=== PATIENT | female | born 2000 | race American Indian/Alaskan Native ===

== ENCOUNTER 2021-03-03 19:43 | Outpatient (CLI) | payer MEDICAID ==
[2021-03-03] MEDS ORDERED: LACTATED RINGERS 1,000 ML IV ONE (21:02)
[2021-03-03 21:22] LABS: Bilirubin,Urine NEG (Negative); Blood,Urine MOD (Negative); Color,Urine Yellow (Yellow); Protein,Urine <15 mg/dL mg/dL (Negative); Urobilinogen,Urine < 2.0 mg/dL (<2.0)
[2021-03-03 22:33] VITALS: BP 115/69
== END 2021-03-03 23:15 | disposition home or self-care (01) ==
LOC: TRG 19:43 → APU 19:44 → TRG 23:15
PROVIDERS: ATTEND Obstetrics & Gynecology
DX: O46.8X2 Other antepartum hemorrhage, second trimester (principal); Z3A.24 24 weeks gestation of pregnancy
CPT/HCPCS: 59025; 81001

== ENCOUNTER 2021-05-23 20:43 | Outpatient (CLI) | payer MEDICAID ==
[2021-05-23] MEDS ORDERED: LACTATED RINGERS 1,000 ML IV ONE (21:50)
[2021-05-23 23:30] VITALS: BP 128/85
== END 2021-05-23 23:43 | disposition home or self-care (01) ==
LOC: TRG 20:43 → APU 20:44 → TRG 23:43
PROVIDERS: ATTEND Obstetrics & Gynecology
DX: O42.913 Preterm premature rupture of membranes, unspecified as to length of time between rupture and onset of labor, third trimester (principal); O26.893 Other specified pregnancy related conditions, third trimester; R19.7 Diarrhea, unspecified; M54.9 Dorsalgia, unspecified; O47.1 False labor at or after 37 completed weeks of gestation; Z3A.36 36 weeks gestation of pregnancy
CPT/HCPCS: 36415; 59025; 84112; 96360; J7120

== ENCOUNTER 2021-06-06 19:31 | Inpatient (IN) | payer MEDICAID ==
[2021-06-06] MEDS ORDERED: ACETAMINOPHEN 325 MG TAB PO PRN (20:13)
[2021-06-06] MEDS ORDERED: fentaNYL 100 MCG/2 ML INJ IV PRN (20:13)
[2021-06-06] MEDS ORDERED: ONDANSETRON 4 MG/2 ML INJ IV PRN (20:13)
[2021-06-06] MEDS ORDERED: ePHEDrine SULFATE 50 MG/1 ML INJ IV PRN (20:13)
[2021-06-06] MEDS ORDERED: BUTORPHANOL 2 MG/1 ML INJ IV PRN (20:13)
[2021-06-06] MEDS ORDERED: NALOXONE 0.4 MG/1 ML INJ IV PRN (20:13)
[2021-06-06] MEDS ORDERED: LIDOCAINE (2%) 20 MG/1 ML VIAL 20 ML MDV INFILTRATI ONE (20:13)
[2021-06-06] MEDS ORDERED: LOPERAMIDE 2 MG CAP PO PRN (20:13)
[2021-06-06] MEDS ORDERED: OXYTOCIN 10 UNIT/1 ML INJ IM PRN (20:13)
[2021-06-06] MEDS ORDERED: MINERAL OIL 30 ML ORAL LIQD PO PRN (20:13)
[2021-06-06] MEDS ORDERED: PROMETHAZINE 25 MG TAB PO PRN (20:13)
[2021-06-06] MEDS ORDERED: miSOPROStol 200 MCG TAB PR PRN (20:13)
[2021-06-06] MEDS ORDERED: CARBOPROST TROMETHAMINE 250 MCG/1 ML INJ IM PRN (20:13)
[2021-06-06] MEDS ORDERED: TERBUTALINE 1 MG/1 ML INJ SUB-Q PRN (20:13)
[2021-06-06] MEDS ORDERED: METHYLERGONOVINE MALEATE 0.2 MG/ML VIAL IM PRN (20:13)
--- NOTE | 2021-06-06 20:26 | History and Physical Report ---
History of Present Illness Date of examination: 06/06/21 Date of admission: 06/06/21 Chief complaint: I'm having a lot of contractions and my water broke at 1 pm today and it was yellow. History of present illness: Pt presented to labor and delivery with c/o SROM for yellow fluid at 1pm and contractions that become more intense and frequent. EDC Confirmation: 06/14/2021 Gestational Age: 38.6 weeks on admission Past History : 1 Term Births: 0 Premature Births: 0 Living Children: 0 Para: 0 Mult. Births: 0 Prev : 0 Prev. attempt? 0 Aborta: 0 Elect. Ab: 0 Spont. 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 [employer] Risk Factors: Smoked Tobacco Use: Never smoker Smokeless Tobacco Use: Never Passive Smoke Exposure: no HIV High Risk Behavior: no Exercise: no Seatbelt Use: 50 % No Dietary Counseling Reason: pn yes Alcohol Use: no Drug Use: no Past Medical History Surgery (Non-cook italian style food): Negative Past Surgical History Abnormal PAP: negative KISHA Exposure: negative Infertility: negative Uterine Anomaly: negative Uterine Surgery (not C/S): positive Other Gynecologic Problems: negative Social Hx: Single denies 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 of genital herpes: no Partner hx. of genital herpes: no Genetic History Congenital Heart Defect: Mom: no Dad: no Alisha Disease: Mom: no Dad: no Thalassemia Mom: no Dad: no Neural Tube Defect Mom: no Dad: no Down's Syndrome Mom: no Dad: no Oz-Sachs Mom: no Dad: no Sickle Cell Disease/Trait Mom: no Dad: no Hemophilia Mom: no Dad: no Muscular Dystrophy Mom: no Dad: no Cystic Fibrosis Mom: no Dad: no [place] Chorea Mom: no Dad: no Mental Retardation Mom: no Dad: no Fragile X Mom: no Dad: no Other Genetic/Chromosomal Disorder Mom: no Dad: no Child w/other defect Mom: no Dad: no Enviromental Exposures Xray Exposure: no Medication, drug, or alcohol use since LMP: no Chemical/Other Exposure: no Exposure to Cat Liter: no Hx of Parvovirus (Fifth Disease): no Occupational Exposure to Children: other 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 Current Allergies (reviewed today): No known allergies Past History Past Medical History: no pertinent history Past Surgical History: no surgical history Family/Genetic History: diabetes, hypertension, cancer Social history: no significant social history - Obstetrical History Expected Date of Delivery: 06/14/21 Actual Gestation: 39 Week(s) 0 Day(s) : 1 Para: 0 Hx # Term Pregnancies: 0 Number of Pregnancies: 0 Spontaneous Abortions: 0 Induced : 0 Number of Living Children: 0 Medications and Allergies Allergies Allergy/AdvReac Type Severity Reaction Status Date / Time No Known Allergies Allergy Unverified 03/03/21 21:01 Active Meds: Active Medications Acetaminophen (Acetaminophen 325 Mg Tab) 650 mg PO Q4H PRN PRN Reason: Pain, Mild (1-3) Butorphanol Tartrate (Butorphanol 2 Mg/1 Ml Inj) 1 mg IV Q2H PRN PRN Reason: Pain, Moderate(4-6) LABOR PAIN Carboprost Tromethamine (Carboprost Tromethamine 250 Mcg/1 Ml Inj) 250 mcg IM ONCE PRN PRN Reason: Uterine Bleeding Ephedrine Sulfate (Ephedrine Sulfate 50 Mg/1 Ml Inj) 10 mg IV Q2M PRN PRN Reason: Hypotension Fentanyl (Fentanyl 100 Mcg/2 Ml Inj) 100 mcg IV Q2H PRN PRN Reason: Pain,Severe (7-10) LABOR PAIN Oxytocin/Sodium Chloride (Pitocin/Ns 30 Unit/500ml) 30 units in 500 mls @ 2 mls/hr IV TITR ASTER; Protocol Lactated Ringer's (Lactated Ringers) 1,000 mls @ 125 mls/hr IV DIRECT ASTER Oxytocin/Sodium Chloride (Pitocin/Ns 30 Unit/500ml) 30 units in 500 mls @ 40 mls/hr IV TITR ASTER; Protocol Lidocaine (Lidocaine (2%) 20 Mg/1 Ml Vial 20 Ml Mdv) 20 ml INFILTRATI ONCE ONE Stop: 06/06/21 20:14 Loperamide HCl (Loperamide 2 Mg Cap) 2 mg PO ONCE PRN PRN Reason: give with Hemabate Methylergonovine Maleate (Methylergonovine Maleate 0.2 Mg/Ml Vial) 0.2 mg IM ONCE PRN PRN Reason: Uterine Bleeding Mineral Oil (Mineral Oil 30 Ml Oral Liqd) 30 ml PO QHS PRN PRN Reason: Constipation Misoprostol (Misoprostol 200 Mcg Tab) 800 mcg MO ONCE PRN PRN Reason: Uterine Bleeding Naloxone HCl (Naloxone 0.4 Mg/1 Ml Inj) 0.1 mg IV Q2MIN PRN PRN Reason: Res Rate </= 8 or 02 SAT < 92% Ondansetron HCl (Ondansetron 4 Mg/2 Ml Inj) 4 mg IV Q8H PRN PRN Reason: Nausea And Vomiting Oxytocin (Oxytocin 10 Unit/1 Ml Inj) 10 unit IM ONCE PRN PRN Reason: Uterine Bleeding Promethazine HCl (Promethazine 25 Mg Tab) 25 mg PO Q6H PRN PRN Reason: Nausea And Vomiting Terbutaline Sulfate (Terbutaline 1 Mg/1 Ml Inj) 0.25 mg SUB-Q ONCE PRN PRN Reason: Hyperstimulation/Hypertonicity Review of Systems All systems: negative - Vital Signs Vital signs: Vital Signs Pulse Pulse Ox 91 H 99 06/06/21 20:03 06/06/21 20:03 Temp Pulse Resp BP Pulse Ox 89 140/86 97 06/06/21 20:18 06/06/21 20:04 06/06/21 20:18 Large amount of light yellow fluid noted on peripad and exam glove. - Physical Exam Breasts: Positive: deferred Cardiovascular: Regular rate Lungs: Positive: Normal air movement Abdomen: Positive: normal appearance, soft Genitourinary (Female): Positive: normal external genitalia, normal perenium Vulva: both: normal Uterus: Positive: normal size Extremities: Positive: normal - Obstetrical FHR: category 1 Uterine Contraction Monitor Mode: External Cervical Dilatation: 4 Cervical Effacement Percentage: 50 station: -2 Uterine Contraction Pattern: Regular Uterine Tone Measurement Phase: Resting Uterine Contraction Intensity: Moderate Results Result Diagrams: 06/06/21 Unknown All other labs normal. GBS NEGATIVE HBsAg Screen Negative Negative *1 RPR Non Reactive Non Reactive *2 Rubella Antibodies, IgG 5.18 index Immune >0.99 *3 Non-immune <0.90 Equivocal 0.90 - 0.99 Immune >0.99 ABO Grouping O *4 Rh Factor Positive *5 Please note: Prior records for this patient's ABO / Rh type are not available for additional verification. Antibody Screen Negative Negative *6 WBC 9.0 x10E3/uL 3.4-10.8 *7 RBC 4.59 x10E6/uL 3.77-5.28 *8 Hemoglobin 12.3 g/dL 11.1-15.9 *9 Hematocrit 38.2 % 34.0-46.6 *10 MCV 83 fL 79-97 *11 MCH 26.8 pg 26.6-33.0 *12 MCHC 32.2 g/dL 31.5-35.7 *13 RDW 13.5 % 11.7-15.4 *14 Platelets 321 x10E3/uL 150-450 *15 Neutrophils 66 % Not Estab. *16 Lymphs 27 % Not Estab. *17 Monocytes 7 % Not Estab. *18 Eos 0 % Not Estab. *19 Basos 0 % Not Estab. *20 ! Immature Cells <No Reported Value> *21 Neutrophils (Absolute) 5.9 x10E3/uL 1.4-7.0 *22 Lymphs (Absolute) 2.4 x10E3/uL 0.7-3.1 *23 Monocytes(Absolute) 0.7 x10E3/uL 0.1-0.9 *24 Eos (Absolute) 0.0 x10E3/uL 0.0-0.4 *25 Baso (Absolute) 0.0 x10E3/uL 0.0-0.2 *26 ! Immature Granulocytes 0 % Not Estab. *27 ! Immature Grans (Abs) 0.0 x10E3/uL 0.0-0.1 *28 ! NRBC <No Reported Value> *29 Hematology Comments: <No Reported Value> *30 Tests: (2) AFP Tetra ([id number]) ! Results Report *31 ! Test Results: *Screen Negative* *32 ! Gest. Age on Collection Date 20.0 WEEKS *33 ! Gestat. Age Based On Ultrasound *34 20.0 on 01/28/2021 ! M[age] CORINNE [age] *35 ! Race Black *36 ! Weight 180 lbs *37 ! Insulin Dep Diabetes No *38 ! Multiple Gestation No *39 ! AFP Value 61.5 ng/mL *40 ! AFP MoM 1.08 *41 ! hCG Value 7299 mIU/mL *42 ! hCG MoM 0.34 *43 ! uE3 Value 2.00 ng/mL *44 ! uE3 MoM 0.94 *45 ! GIGI Value 100.82 pg/mL *46 ! GIGI MoM 0.62 *47 ! [place] 1 [place] [address] *48 ! DSR (Second Trimester) 1 [place] [address] *49 ! DSR (By Age) 1 IN 1148 *50 ! T18 Risk Not increased *51 ! T18 (By Age) 1:4473 *52 ! Interpretation NL42 *53 Interpretation: Screen Negative This result is screen negative for OSB, Down Syndrome and Trisomy 18. The AFP MoM and patient specific risks calculated are based on the gestational age and the clinical information provided. This test can identify up to 80% of open neural tube defects. Closed neural tube defects and some open defects may not be detected by this test. The combination of maternal age, AFP, hCG, uE3, and GIGI identifies 75-80% of Down Syndrome. The combination of maternal age, AFP, hCG and uE3 identifies 60% of Trisomy 18 pregnancies. The [place] recommends amniocentesis be offered to women age 35 and older. Recalculations are not recommended when gestational dating by LMP and ultrasound are within 10 days. ! Comments: [facility] *54 Shala Hurley, Ph.D., [facility] Director References: Available Upon Request. Multiples Of Median Cutoffs Abbreviation Definitions For AFP Elevations IDD- Insulin Dep Diabetes Brock 2.5 Black 2.8 OSBR- Open Spina Bifida IDD 2.0 Twins 4.5 Risk DSR Cutoff 1:270 DSR- Down Syndrome Risk T18 Cutoff 1:100 T18- Trisomy 18 Down Syndrome and Trisomy 18 screening are considered Investigational For further inquiries contact [facility] at [phone]. Tests: (3) Parvovirus B19, Human, IgG/IgM ([id number]) ! Parvovirus B19, IgG 0.3 index 0.0-0.8 *55 Negative <0.9 Equivocal 0.9 - 1.1 Positive >1.1 ! Parvovirus B19, IgM 0.1 index 0.0-0.8 *56 Negative <0.9 Equivocal 0.9 - 1.1 Positive >1.1 Tests: (4) HB Solu + Rflx Fra ([id number]) Hemoglobin (Hgb) Solubility Negative Negative *57 Tests: (5) HIV Ag/Ab with Reflex ([id number]) HIV Screen 4th Generation wRfx Non Reactive Non Reactive *58 Tests: (6) HCV Antibody reflex to KIMBER ([id number]) HCV Ab 0.1 s/co ratio 0.0-0.9 *59 Tests: (7) Interpretation: ([id number]) ! Interpretation: SPRCS *60 Negative Not infected with HCV, unless recent infection is suspected or other evidence exists to indicate HCV infection. Tests: (8) Urine Culture, Routine ([id number]) Urine Culture, Routine Final report *61 Tests: (9) Result ([id number]) ! Result 1 No growth *62 Assessment and Plan A: 21 y.o. @ 38.6 wks on admission, SROM @ 1pm for light mec, labor. - Patient Problems (1) 38 to 41 weeks gestation of Current Visit: Yes Status: Acute Plan to address problem: Admit to labor and delivery. Initiate IV. Draw admission labs. Pain medication and epidural ordered if and when needed. Anticipate . (2) Thin meconium stained amniotic fluid Current Visit: Yes Status: Acute Plan to address problem: ASHLEY team at delivery.
[2021-06-06] MEDS ORDERED: OXYTOCIN DRIP 30 UNITS/500 ML BAG IV SCH ×2 (21:00)
--- NOTE | 2021-06-06 21:33 | Ultrasound Report ---
US OB LIMITED INDICATION: presentation. COMPARISON: None available. FINDINGS: A single live intrauterine is seen in cephalic presentation with a heart rate of 119 bpm. N o acute findings are identified by limited ultrasound imaging. IMPRESSION: Single live intrauterine without acute findings on this limited ultrasound. Signer Name: Chris Bailey MD Signed: 06/06/2021 9:29 PM Workstation Name: [id number]
[2021-06-06 22:00] LABS: Hematocrit 37.9 % (30.3-42.9); Hemoglobin 12.1 gm/dl (10.1-14.3); Mean Corpuscular HGB Conc 32 % (30-34); Mean Corpuscular Volume 79 fl (79-97); Platelet Count 301 K/mm3 (140-440); Red Blood Count 4.81 M/mm3 (3.65-5.03); Red Cell Distribution Width 14.5 % (13.2-15.2)
[2021-06-06] MEDS: LACTATED RINGERS 1,000 ML IV SCH (22:28)
--- NOTE | 2021-06-07 01:13 | Event Note ---
Date: 06/07/21 AROM of forebag that looked clear at this time. Cervical exam 5.5//-2. Discussed with pain medication options discussed: epidural placement and IV medication. Patient states that she is thinking about options. Anticipate .
[2021-06-07] MEDS: LACTATED RINGERS 1,000 ML IV SCH ×2 (01:15→09:00)
--- NOTE | 2021-06-07 02:50 | Procedure Note ---
OB Delivery Note - Delivery Date of Delivery: 06/07/21 Net C Developer: SAW GONSALES Estimated blood loss: 200cc - Vaginal Delivery presentation: vertex Delivery position: OA Intrapartum events: meconium Delivery induction: none Delivery augmentation: pitocin Delivery monitor: external FHT, external uterine Route of delivery: Delivery placenta: spontaneous Delivery cord: 3 umbilical vessels Episiotomy: none Delivery laceration: none Anesthesia: intravenous (Fentanyl X1) Delivery comments: of viable male . Infant to mother abdomen for skin to skin. Cord clamped after cessation of pulse. Cut by FOC. Infant to warmer for ASHLEY team evaluation. Spontaneous delivery of placenta, intact, complete, 3 vessels noted. Perineum and vagina inspected, no lacerations noted. Fundus firm, minimal bleeding noted. EBL 200ml. Apgars 8,9. Infant weight 5-15. Sponges and instruments counted X2 with RN and correct X2. and mother left in stable condition in the care of the RN. - A at 1 minute: 8 ("Famous", Weight 5-15) at 5 minutes: 9 Infant Gender: Male
--- NOTE | 2021-06-07 02:59 | Event Note ---
Date: 06/07/21 Was told by RN that patient's blood pressures have been 160-180's/80-100's since delivery. Consulted with Dr. Ayala. Will start magnesium infusion, draw pre eclampsia labs. Discussed elevated blood pressures with patient and need for magnesium infusion, Gaitan Catheter placement, and lab work. Pt agrees to plan at this time.
[2021-06-07] MEDS ORDERED: MAGNESIUM SULFATE 4 GM/100 ML BAG IV ONE (03:03)
[2021-06-07] MEDS ORDERED: MAGNESIUM SULFATE 40GM/1000ML 40 GM/1,000 ML BAG IV SCH ×2 (04:00→21:00)
[2021-06-07 04:36] LABS: Hematocrit 33.1 % (30.3-42.9); Hemoglobin 10.4 gm/dl (10.1-14.3); Mean Corpuscular HGB Conc 32 % (30-34); Mean Corpuscular Volume 78 fl (79-97); Platelet Count 271 K/mm3 (140-440); Red Blood Count 4.27 M/mm3 (3.65-5.03); Red Cell Distribution Width 13.9 % (13.2-15.2)
[2021-06-07 04:52] LABS: Alanine Aminotransferase 12 units/L (7-56); Uric Acid 4.3 mg/dL (3.5-7.6)
[2021-06-07] MEDS ORDERED: LANOLIN/ZINC/DIMETHICONE (LANSINOH) 7 GM TP PRN ×2 (08:34)
[2021-06-07] MEDS ORDERED: PROMETHAZINE 25 MG RECT SUPP PR PRN (08:34)
[2021-06-07] MEDS ORDERED: diphenhydrAMINE 25 MG CAP PO PRN (08:34)
[2021-06-07] MEDS ORDERED: oxyCODONE /ACETAMINOPHEN 5-325MG TAB PO PRN (08:34)
[2021-06-07] MEDS ORDERED: WITCH HAZEL/ GLYCERIN PAD TP PRN (08:34)
[2021-06-07] MEDS ORDERED: ONDANSETRON 4 MG/2 ML INJ IV PRN (08:34)
[2021-06-07] MEDS ORDERED: PROMETHAZINE 25 MG TAB PO PRN (08:34)
[2021-06-07] MEDS ORDERED: BENZOCAINE/MENTHOL 20/0.5% TOP SPRAY 56 GM TP PRN (08:34)
[2021-06-07] MEDS ORDERED: MAGNESIUM HYDROXIDE (MOM) ORAL LIQD UDC PO PRN (08:34)
[2021-06-07] MEDS ORDERED: ACETAMINOPHEN 500 MG TAB PO PRN (09:10)
[2021-06-07] MEDS: DOCUSATE SODIUM 100 MG CAP PO SCH (09:59)
[2021-06-07] MEDS: IBUPROFEN 600 MG TAB PO SCH (09:59)
[2021-06-07] MEDS ORDERED: OXYTOCIN DRIP 30 UNITS/500 ML BAG IV SCH (10:00)
[2021-06-07] MEDS ORDERED: miSOPROStol 200 MCG TAB PR ONE (10:00)
--- NOTE | 2021-06-07 13:13 | Progress Note ---
Assessment and Plan Pt resting with baby sleeping in bassinet at BS. S/o in room. Pt awakened to touch. denies TRIANA/visual changes or epigastric pain. Lochia scant, fundus firm. H&H ordered for 1510. VSS currently normal, will continue to monitor closely. - Patient Problems (1) (normal spontaneous vaginal delivery) Current Visit: Yes Status: Acute Plan to address problem: Continue pathway Transfer to [facility] after 24hrs of mag sulfate therapy (2) Pre-eclampsia Current Visit: Yes Status: Acute Plan to address problem: Mag x 24hrs post delivery Strict I&O Monitor for worsening symptoms Labetalol 200mg PO BID Subjective - Subjective Date of service: 06/07/21 Principal diagnosis: day #0, ~12hrs from delivery, elevated b/p Patient reports: appetite normal, pain well controlled, no nauseated [place]: doing well Objective - Vital Signs Latest vital signs: Vital Signs Temp Pulse Resp BP Pulse Ox Pulse Ox 06/07/21 13:05 83 100 06/07/21 13:00 97 H 100 06/07/21 12:55 103 H 99 06/07/21 12:51 90 110/67 06/07/21 12:50 97 H 100 06/07/21 12:45 95 H 100 06/07/21 12:40 95 H 100 06/07/21 12:35 101 H 100 06/07/21 12:30 96 H 100 06/07/21 12:25 107 H 100 06/07/21 12:20 107 H 100 06/07/21 12:15 110 H 100 06/07/21 12:10 100 H 100 06/07/21 12:05 101 H 100 06/07/21 12:00 108 H 100 06/07/21 11:55 97 H 100 06/07/21 11:50 99 H 119/57 100 06/07/21 11:45 97 H 100 06/07/21 11:40 80 100 06/07/21 11:35 108 H 100 06/07/21 11:30 101 H 100 06/07/21 11:25 86 100 06/07/21 11:20 100 H 139/63 100 06/07/21 11:15 101 H 100 06/07/21 11:10 99 H 100 06/07/21 11:05 102 H 100 06/07/21 11:00 104 H 100 06/07/21 10:55 96 H 100 06/07/21 10:50 96 H 123/70 100 06/07/21 10:45 98 H 100 06/07/21 10:43 97 H 94 06/07/21 10:40 97 H 99 06/07/21 10:35 93 H 99 06/07/21 10:30 108 H 100 06/07/21 10:25 102 H 100 06/07/21 10:20 107 H 140/85 100 06/07/21 10:15 91 H 100 06/07/21 10:10 95 H 100 06/07/21 10:05 93 H 100 06/07/21 10:00 111 H 100 06/07/21 09:55 93 H 100 06/07/21 09:50 101 H 130/61 100 06/07/21 09:45 95 H 100 06/07/21 09:40 99 H 100 06/07/21 09:35 95 H 100 06/07/21 09:30 84 100 06/07/21 09:25 86 100 06/07/21 09:20 89 120/77 100 06/07/21 09:15 91 H 100 06/07/21 09:10 94 H 100 06/07/21 09:05 101 H 100 06/07/21 09:00 105 H 100 06/07/21 08:55 96 H 125/82 100 06/07/21 08:50 103 H 100 06/07/21 08:45 108 H 100 06/07/21 08:40 107 H 100 06/07/21 08:35 118 H 100 06/07/21 08:30 116 H 100 06/07/21 08:25 110 H 100 06/07/21 08:20 114 H 100 06/07/21 08:15 114 H 100 06/07/21 08:10 118 H 100 06/07/21 08:05 116 H 100 06/07/21 08:00 115 H 100 99 06/07/21 07:55 113 H 100 06/07/21 07:50 129 H 100 06/07/21 07:45 115 H 100 06/07/21 07:40 124 H 100 06/07/21 07:35 114 H 100 06/07/21 07:30 122 H 100 06/07/21 07:25 112 H 100 06/07/21 07:20 109 H 142/100 100 06/07/21 07:15 107 H 100 06/07/21 07:10 104 H 100 06/07/21 07:05 116 H 100 06/07/21 07:00 101 H 100 06/07/21 06:55 94 H 100 06/07/21 06:50 98.0 F 95 H 18 129/60 100 06/07/21 06:45 102 H 100 06/07/21 06:40 91 H 100 06/07/21 06:35 97 H 100 06/07/21 06:30 98 H 100 06/07/21 06:25 92 H 100 06/07/21 06:20 106 H 158/65 100 06/07/21 06:15 90 100 06/07/21 06:10 99 H 100 06/07/21 06:05 130 H 100 06/07/21 06:02 121 H 137/98 06/07/21 06:00 98.0 F 133 H 18 100 06/07/21 05:55 105 H 99 06/07/21 05:50 102 H 132/69 99 06/07/21 05:45 107 H 99 06/07/21 05:40 104 H 99 06/07/21 05:35 105 H 100 06/07/21 05:30 120 H 100 06/07/21 05:25 109 H 100 06/07/21 05:20 109 H 131/76 100 06/07/21 05:15 107 H 100 06/07/21 05:10 114 H 100 06/07/21 05:05 111 H 100 06/07/21 05:00 98.2 F 112 H 18 100 06/07/21 04:56 106 H 154/86 06/07/21 04:55 105 H 100 06/07/21 04:50 100 H 164/89 100 06/07/21 04:45 98 H 100 06/07/21 04:40 106 H 100 06/07/21 04:35 110 H 100 06/07/21 04:30 100 H 99 06/07/21 04:25 102 H 100 06/07/21 04:20 106 H 99 06/07/21 04:15 104 H 142/74 100 06/07/21 04:10 117 H 100 06/07/21 04:08 106 H 143/71 06/07/21 04:05 112 H 100 06/07/21 04:01 114 H 155/70 06/07/21 04:00 98.0 F 114 H 20 100 06/07/21 03:55 112 H 100 06/07/21 03:50 92 H 100 06/07/21 03:45 87 126/75 100 06/07/21 03:40 92 H 100 06/07/21 03:35 91 H 95 06/07/21 03:30 97 H 155/71 100 06/07/21 03:25 102 H 100 06/07/21 03:20 98 H 100 06/07/21 03:16 100 H 164/84 06/07/21 03:15 98 H 100 06/07/21 03:14 20 06/07/21 03:10 94 H 100 06/07/21 03:05 99 H 100 06/07/21 03:00 102 H 151/73 100 06/07/21 02:58 96 H 154/85 06/07/21 02:55 93 H 171/88 100 06/07/21 02:53 100 H 183/103 06/07/21 02:50 101 H 100 06/07/21 02:45 107 H 165/93 100 06/07/21 02:40 109 H 100 06/07/21 02:35 97.9 F 96 H 165/82 100 06/07/21 02:31 105 H 183/108 06/07/21 02:30 111 H 97 06/07/21 02:25 102 H 100 06/07/21 02:20 96 H 99 06/07/21 02:15 91 H 99 06/07/21 02:14 20 06/07/21 02:10 107 H 100 06/07/21 02:05 116 H 100 06/07/21 02:00 111 H 100 06/07/21 01:55 105 H 100 06/07/21 01:50 101 H 100 06/07/21 01:45 103 H 99 06/07/21 01:40 96 H 100 06/07/21 01:35 108 H 100 06/07/21 01:30 97 H 100 06/07/21 01:25 103 H 100 06/07/21 01:20 90 100 06/07/21 01:15 89 100 06/07/21 01:10 92 H 100 06/07/21 01:05 100 H 100 06/07/21 01:00 94 H 100 06/07/21 00:55 101 H 100 06/07/21 00:50 105 H 100 06/07/21 00:26 82 99 06/07/21 00:21 89 96 06/07/21 00:16 84 96 06/07/21 00:11 85 97 06/07/21 00:06 79 96 06/07/21 00:01 87 96 06/06/21 23:56 81 98 06/06/21 23:52 87 06/06/21 23:50 79 99 06/06/21 23:45 81 97 06/06/21 23:42 89 06/06/21 23:40 79 97 06/06/21 23:35 92 H 97 06/06/21 23:34 86 94 06/06/21 23:30 83 97 06/06/21 23:02 80 97 06/06/21 22:57 76 97 06/06/21 22:56 78 132/65 06/06/21 22:52 94 06/06/21 22:47 94 H 0 L 06/06/21 22:27 97 H 96 06/06/21 22:13 88 97 06/06/21 22:08 86 98 06/06/21 22:03 83 96 06/06/21 21:57 82 100 06/06/21 21:32 93 H 92 06/06/21 21:27 89 99 06/06/21 21:08 94 H 100 06/06/21 21:03 87 98 06/06/21 20:58 90 97 06/06/21 20:53 188 H 86 06/06/21 20:52 97 H 80 L 06/06/21 20:48 89 100 06/06/21 20:45 102 H 92 06/06/21 20:43 100 H 98 06/06/21 20:38 101 H 98 06/06/21 20:33 96 H 98 06/06/21 20:32 97 H 94 06/06/21 20:30 98.2 F 06/06/21 20:28 82 100 06/06/21 20:23 93 H 99 06/06/21 20:18 89 97 06/06/21 20:13 91 H 97 06/06/21 20:08 93 H 100 06/06/21 20:04 73 140/86 06/06/21 20:03 91 H 99 Intake and Output 06/06/21 06/07/21 06/07/21 23:59 07:59 15:59 Intake Total 217.849 5867.133 429.467 Output Total 1450 550 Balance 552.034 -428.867 -120.533 Intake: IV 803.132 2049.133 429.467 Lactated Ringers 1,000 ml 839.554 2970.966 429.467 @ 125 mls/hr IV DIRECT ASTER Rx#:[id number] PITOCin/NS 30 UNIT/500ML 0.467 2.167 30 units In 500 ml @ 2 mls/hr IV TITR ASTER Rx#: [id number] Output: Urine 1450 550 Indwelling Catheter 550 Uretheral (Gaitan) 300 Void 1150 Other: Total, Output Amount 150 550 Weight 93.416 kg Estimated Blood Loss 200 - Exam Breasts: Present: normal Cardiovascular: Present: Regular rate Lungs: Present: Normal air movement Abdomen: Present: normal appearance, soft Vulva: both: normal Uterus: Present: normal, firm, fundal height below umbilicus Extremities: Present: normal Deep Tendon Reflex Grade: Normal +2 - Labs Labs: Abnormal lab results 06/06/21 06/07/21 06/07/21 Range/Units Unknown 04:13 04:13 WBC 13.0 H (4.5-11.0) K/mm3 MCV 78 L (79-97) fl MCH 25 L 24 L (28-32) pg Creatinine 0.4 L (0.6-1.2) mg/dL Magnesium (1.7-2.3) mg/dL Lactate Dehydrogenase 183 H (91-180) units/L 06/07/21 Range/Units 07:30 WBC (4.5-11.0) K/mm3 MCV (79-97) fl MCH (28-32) pg Creatinine (0.6-1.2) mg/dL Magnesium 2.80 H (1.7-2.3) mg/dL Lactate Dehydrogenase (91-180) units/L
[2021-06-07 16:21] LABS: Hematocrit 32.7 % (30.3-42.9); Hemoglobin 10.2 gm/dl (10.1-14.3)
[2021-06-07] MEDS: PRENATAL VIT27-FE FUMARATE-FOLIC ACID VIT TAB PO SCH (16:46)
[2021-06-07] MEDS ORDERED: LACTATED RINGERS 1,000 ML ONE (19:54)
[2021-06-07] MEDS ORDERED: LACTATED RINGERS 1,000 ML IV SCH (20:45)
[2021-06-08] MEDS: IBUPROFEN 600 MG TAB PO SCH ×4 (05:54→21:39)
--- NOTE | 2021-06-08 05:55 | Progress Note ---
Assessment and Plan Pt resting with baby sleeping in bassinet at BS. S/o in room. Pt awakened to touch. denies TRIANA/visual changes or epigastric pain. Lochia scant, fundus firm. H&H 10.2/32.7. VSS currently normal, will continue to monitor closely. - Patient Problems (1) (normal spontaneous vaginal delivery) Current Visit: Yes Status: Acute Plan to address problem: Continue pathway Anticipate d/c home tomorrow if patient remains stable. (2) Pre-eclampsia Current Visit: Yes Status: Acute Plan to address problem: Mag x 24hrs post delivery completed Monitor for worsening symptoms Labetalol 200mg PO BID Subjective - Subjective Date of service: 06/08/21 Principal diagnosis: day #1; s/p and Mag for elevated b/p Patient reports: appetite normal, voiding normally, pain well controlled, ambulating normally, no dizzy ambulation, no nauseated [place]: doing well Objective - Vital Signs Latest vital signs: Vital Signs Temp Pulse Resp BP BP Pulse Ox Pulse Ox 06/08/21 04:15 77 100 06/08/21 04:10 71 100 06/08/21 04:05 76 100 06/08/21 04:00 80 100 06/08/21 03:55 82 100 06/08/21 03:50 88 113/65 100 06/08/21 03:45 75 100 06/08/21 03:40 75 100 06/08/21 03:35 74 100 06/08/21 03:30 93 H 100 06/08/21 03:25 85 100 06/08/21 03:20 92 H 99 06/08/21 03:15 73 100 06/08/21 03:10 73 100 06/08/21 03:05 99 H 100 06/08/21 03:01 79 118/70 06/08/21 03:00 97.4 F L 81 100 06/08/21 02:55 90 100 06/08/21 02:50 96 H 100 06/08/21 02:45 85 100 06/08/21 02:40 99 H 100 06/08/21 02:35 85 100 06/08/21 02:31 90 106/61 06/08/21 02:30 91 H 100 06/08/21 02:25 88 100 06/08/21 02:20 99 H 100 06/08/21 02:15 99 H 100 06/08/21 02:10 100 H 100 06/08/21 02:05 101 H 100 06/08/21 02:01 93 H 123/58 06/08/21 02:00 100 H 100 06/08/21 01:55 89 100 06/08/21 01:50 82 100 06/08/21 01:45 94 H 100 06/08/21 01:40 91 H 100 06/08/21 01:35 94 H 100 06/08/21 01:31 96 H 110/81 06/08/21 01:30 97 H 100 06/08/21 01:25 100 H 100 06/08/21 01:20 101 H 100 06/08/21 01:15 101 H 100 06/08/21 01:10 94 H 100 06/08/21 01:05 103 H 99 06/08/21 01:01 115 H 118/81 06/08/21 01:00 101 H 100 06/08/21 00:55 80 100 06/08/21 00:50 80 100 06/08/21 00:45 82 100 06/08/21 00:40 85 100 06/08/21 00:35 84 100 06/08/21 00:31 85 110/68 06/08/21 00:30 86 100 06/08/21 00:25 86 100 06/08/21 00:20 85 100 06/08/21 00:15 88 100 06/08/21 00:10 82 100 06/08/21 00:05 80 100 06/08/21 00:01 82 114/61 06/08/21 00:00 91 H 100 06/07/21 23:55 82 100 06/07/21 23:50 94 H 100 06/07/21 23:45 88 100 06/07/21 23:40 111 H 100 06/07/21 23:35 92 H 100 06/07/21 23:31 91 H 139/76 06/07/21 23:30 93 H 100 06/07/21 23:25 93 H 100 06/07/21 23:20 92 H 100 06/07/21 23:15 91 H 100 06/07/21 23:10 91 H 100 06/07/21 23:05 95 H 100 06/07/21 23:01 94 H 128/61 06/07/21 23:00 96 H 100 06/07/21 22:55 97 H 100 06/07/21 22:50 91 H 100 06/07/21 22:45 104 H 100 06/07/21 22:40 90 100 06/07/21 22:35 90 100 06/07/21 22:31 86 135/75 06/07/21 22:30 90 100 06/07/21 22:25 90 100 06/07/21 22:20 99 H 100 06/07/21 22:15 100 H 100 06/07/21 22:10 88 100 06/07/21 22:05 93 H 100 06/07/21 22:01 94 H 136/75 06/07/21 22:00 86 100 06/07/21 21:55 103 H 94 06/07/21 21:50 101 H 128/60 100 06/07/21 21:48 98 H 128/60 06/07/21 21:45 102 H 100 06/07/21 21:40 89 100 06/07/21 21:35 107 H 100 06/07/21 21:30 102 H 100 06/07/21 21:25 101 H 100 06/07/21 21:20 94 H 100 06/07/21 21:15 94 H 100 06/07/21 21:10 114 H 100 06/07/21 21:05 99 H 100 06/07/21 21:01 84 107/58 06/07/21 21:00 98 H 100 06/07/21 20:55 113 H 100 06/07/21 20:50 86 100 06/07/21 20:45 81 100 06/07/21 20:40 104 H 100 06/07/21 20:35 90 100 06/07/21 20:31 93 H 109/63 06/07/21 20:30 96 H 100 06/07/21 20:25 98 H 100 06/07/21 20:20 98 H 100 06/07/21 20:15 97 H 100 06/07/21 20:10 94 H 100 06/07/21 20:05 98 H 100 06/07/21 20:00 104 H 100 06/07/21 19:55 97 H 99 06/07/21 19:50 104 H 100 06/07/21 19:45 99 H 100 06/07/21 19:40 99 H 100 06/07/21 19:35 100 H 100 06/07/21 19:30 93 H 100 06/07/21 19:25 90 100 06/07/21 19:20 100 H 100 06/07/21 19:19 100 06/07/21 19:15 97 H 100 06/07/21 19:10 92 H 118/67 97 06/07/21 19:08 98.4 F 188/67 06/07/21 19:06 100 H 85 06/07/21 19:05 108 H 97 06/07/21 19:00 100 H 97 06/07/21 18:55 98 H 97 06/07/21 18:50 103 H 113/76 98 06/07/21 18:45 109 H 99 06/07/21 18:40 101 H 100 06/07/21 18:39 102 H 93 06/07/21 18:35 106 H 99 06/07/21 18:30 97 H 100 06/07/21 18:25 96 H 99 06/07/21 18:24 101 H 84 06/07/21 18:23 97 H 123/58 06/07/21 18:20 96 H 100 06/07/21 18:15 98 H 100 06/07/21 18:10 67 100 06/07/21 18:05 106 H 100 06/07/21 18:00 103 H 100 06/07/21 17:55 109 H 100 06/07/21 17:50 99 H 100 06/07/21 17:45 104 H 100 06/07/21 17:40 113 H 98 06/07/21 17:35 112 H 100 06/07/21 17:30 102 H 99 06/07/21 17:27 111 H 94 06/07/21 17:25 57 L 97 06/07/21 17:20 110 H 100 06/07/21 17:15 106 H 100 06/07/21 17:10 104 H 100 06/07/21 17:05 112 H 100 06/07/21 17:00 108 H 100 06/07/21 16:55 103 H 99 06/07/21 16:50 97 H 100 06/07/21 16:49 53 L 92 06/07/21 16:45 99 H 100 06/07/21 16:40 95 H 100 06/07/21 16:35 104 H 99 06/07/21 16:30 107 H 100 06/07/21 16:25 109 H 100 06/07/21 16:20 111 H 135/70 100 06/07/21 16:15 106 H 100 06/07/21 16:10 89 99 06/07/21 16:05 83 100 06/07/21 16:00 99 H 100 06/07/21 15:55 87 100 06/07/21 15:50 88 123/76 100 06/07/21 15:45 96 H 100 06/07/21 15:40 92 H 100 06/07/21 15:35 91 H 100 06/07/21 15:30 89 100 06/07/21 15:25 88 100 06/07/21 15:20 89 136/75 100 06/07/21 15:15 78 100 06/07/21 15:10 91 H 100 06/07/21 15:05 84 100 06/07/21 15:00 90 100 06/07/21 14:55 89 100 06/07/21 14:50 93 H 129/69 100 06/07/21 14:45 91 H 100 06/07/21 14:40 92 H 100 06/07/21 14:35 98.1 F 107 H 16 100 06/07/21 14:30 88 100 06/07/21 14:25 92 H 100 06/07/21 14:21 84 117/53 06/07/21 14:20 86 100 06/07/21 14:15 89 100 06/07/21 14:10 89 100 06/07/21 14:05 95 H 100 06/07/21 14:00 94 H 100 06/07/21 13:55 87 99 06/07/21 13:50 85 124/77 99 06/07/21 13:45 97 H 99 06/07/21 13:40 86 99 06/07/21 13:35 103 H 99 06/07/21 13:30 106 H 99 06/07/21 13:25 93 H 99 06/07/21 13:20 89 120/56 100 06/07/21 13:15 86 100 06/07/21 13:10 86 100 06/07/21 13:05 83 100 06/07/21 13:00 97 H 100 06/07/21 12:55 103 H 99 06/07/21 12:51 90 110/67 06/07/21 12:50 97 H 100 06/07/21 12:45 95 H 100 06/07/21 12:40 95 H 100 06/07/21 12:35 101 H 100 06/07/21 12:30 96 H 100 06/07/21 12:25 107 H 100 06/07/21 12:20 107 H 100 06/07/21 12:15 110 H 100 06/07/21 12:10 100 H 100 06/07/21 12:05 101 H 100 06/07/21 12:00 108 H 100 06/07/21 11:55 97 H 100 06/07/21 11:50 99 H 119/57 100 06/07/21 11:45 97 H 100 06/07/21 11:40 80 100 06/07/21 11:35 108 H 100 06/07/21 11:30 101 H 100 06/07/21 11:25 86 100 06/07/21 11:20 100 H 139/63 100 06/07/21 11:15 101 H 100 06/07/21 11:10 99 H 100 06/07/21 11:05 102 H 100 06/07/21 11:00 104 H 100 06/07/21 10:55 96 H 100 06/07/21 10:50 96 H 123/70 100 06/07/21 10:45 98 H 100 06/07/21 10:43 97 H 94 06/07/21 10:40 97 H 99 06/07/21 10:35 93 H 99 06/07/21 10:30 98.2 F 108 H 16 99 06/07/21 10:25 102 H 100 06/07/21 10:20 107 H 140/85 100 06/07/21 10:15 91 H 100 06/07/21 10:10 95 H 100 06/07/21 10:05 93 H 100 06/07/21 10:00 111 H 100 06/07/21 09:55 93 H 100 06/07/21 09:50 101 H 130/61 100 06/07/21 09:45 95 H 100 06/07/21 09:40 99 H 100 06/07/21 09:35 95 H 100 06/07/21 09:30 84 100 06/07/21 09:25 86 100 06/07/21 09:20 89 120/77 100 06/07/21 09:15 91 H 100 06/07/21 09:10 94 H 100 06/07/21 09:05 101 H 100 06/07/21 09:00 105 H 100 06/07/21 08:55 96 H 125/82 100 06/07/21 08:50 103 H 100 06/07/21 08:45 108 H 100 06/07/21 08:40 107 H 100 06/07/21 08:35 118 H 100 06/07/21 08:30 116 H 100 06/07/21 08:25 110 H 100 06/07/21 08:20 114 H 100 06/07/21 08:15 114 H 100 06/07/21 08:10 118 H 100 06/07/21 08:05 116 H 100 06/07/21 08:00 115 H 100 99 06/07/21 07:55 113 H 100 06/07/21 07:50 129 H 100 06/07/21 07:45 115 H 100 06/07/21 07:40 124 H 100 06/07/21 07:35 114 H 100 06/07/21 07:30 122 H 100 06/07/21 07:25 112 H 100 06/07/21 07:20 109 H 142/100 100 06/07/21 07:15 107 H 100 06/07/21 07:10 104 H 100 06/07/21 07:05 116 H 100 06/07/21 07:00 101 H 100 06/07/21 06:55 94 H 100 06/07/21 06:50 98.0 F 95 H 18 129/60 100 06/07/21 06:45 102 H 100 06/07/21 06:40 91 H 100 06/07/21 06:35 97 H 100 06/07/21 06:30 98 H 100 06/07/21 06:25 92 H 100 06/07/21 06:20 106 H 158/65 100 06/07/21 06:15 90 100 06/07/21 06:10 99 H 100 06/07/21 06:05 130 H 100 06/07/21 06:02 121 H 137/98 06/07/21 06:00 98.0 F 133 H 18 100 06/07/21 05:55 105 H 99 Intake and Output 06/07/21 06/07/21 06/08/21 15:59 23:59 07:59 Intake Total 429.467 Output Total 1150 1800 850 Balance -720.533 -1800 -850 Intake: IV 429.467 Lactated Ringers 1,000 ml 429.467 @ 125 mls/hr IV DIRECT ASTER Rx#:[id number] Output: Urine 1150 1800 850 Indwelling Catheter 1150 1800 100 Void 750 Other: Total, Output Amount 600 400 500 - Exam Breasts: Present: normal Cardiovascular: Present: Regular rate Lungs: Present: Clear to auscultation, Normal air movement Abdomen: Present: normal appearance, soft Vulva: both: normal Uterus: Present: normal, firm, fundal height below umbilicus Extremities: Present: normal Deep Tendon Reflex Grade: Normal +2 - Labs Labs: Abnormal lab results 06/07/21 06/07/21 06/07/21 Range/Units 07:30 15:57 22:20 Magnesium 2.80 H 3.50 H 3.20 H (1.7-2.3) mg/dL
[2021-06-08] MEDS ORDERED: TETANUS,DIPH,PERTUSS(ACELL) VACCINE 0.5 ML SYRINGE IM ONE (06:00)
[2021-06-08] MEDS: PRENATAL VIT27-FE FUMARATE-FOLIC ACID VIT TAB PO SCH (10:25)
[2021-06-08] MEDS: DOCUSATE SODIUM 100 MG CAP PO SCH ×2 (10:25→21:39)
[2021-06-09] MEDS: IBUPROFEN 600 MG TAB PO SCH (05:53)
--- NOTE | 2021-06-09 12:06 | Discharge Summary ---
Providers - Providers Date of Admission: 06/06/21 20:13 Date of discharge: 06/09/21 (pt desires discharge home) Attending physician: ALEXANDRE ACOSTA Primary care physician: ALEXANDRE ACOSTA Hospitalization Reason for admission: rupture of membranes, IUP at term Delivery: Episiotomy: none Laceration: none Other procedures: none complications: none Discharge diagnosis: IUP at term delivered [place] baby: male Condition at discharge: Good Disposition: HOME / SELF CARE / HOMELESS Plan - Discharge Medications Prescriptions: Lidocain2.5%/Prilocai2.5% [Emla] 1 applic TP ONCE #1 tube labetaloL [Labetalol 200mg TAB] 200 mg PO BID #60 tablet - Provider Discharge Summary Activity: routine, no sex for 6 weeks, no heavy lifting 4 weeks, no strenuous exercise Diet: routine Instructions: routine Additional instructions: [] Smoking cessation referral if applicable(refer to patient education folder for contact #) [] Refer to [facility]'s [facility] Booklet Call your doctor immediately for: * Fever > 100.5 * Heavy vaginal bleeding ( >1 pad per hour) * Severe persistent headache * Shortness of breath * Reddened, hot, painful area to leg or breast Congratulations! Please call [phone] and schedule your visit with blood pressure check in 1 week. Please also schedule your 's elective circumcision in 1 week, as desired. Do not apply the prescription cream before the procedure. Please bring it with you to your appointment. Thank you! - Follow up plan Follow up: ALEXANDRE ACOSTA MD [Primary Care Provider] - 7 Days
[2021-06-09 12:45] VITALS: BP 129/64
== END 2021-06-09 12:56 | disposition home or self-care (01) | DRG 775 ==
LOC: TRG 19:31 → LD 19:38 → TRG 20:13 → OB 06-08 05:32
PROVIDERS: ADMIT Obstetrics & Gynecology; ATTEND Obstetrics & Gynecology
PROC: 10E0XZZ Delivery of Products of Conception, External Approach (ICD-10-PCS; principal; 2021-06-07)
PROC: 10907ZC Drainage of Amniotic Fluid, Therapeutic from Products of Conception, Via Natural or Artificial Opening (ICD-10-PCS; 2021-06-07)
PROC: 3E0234Z Introduction of Serum, Toxoid and Vaccine into Muscle, Percutaneous Approach (ICD-10-PCS; 2021-06-08)
DX: O14.94 Unspecified pre-eclampsia, complicating childbirth (principal); Z3A.39 39 weeks gestation of pregnancy; Z37.0 Single live birth; Z23 Encounter for immunization; Z20.822 Contact with and (suspected) exposure to COVID-19; O77.0 Labor and delivery complicated by meconium in amniotic fluid
CPT/HCPCS: 36415; 76815; 82565; 83615; 83735; 84450; 84460; 84550; 85014; 85018; 85027; 86592; 86850; 86900; 86901; 99211; G0378; G0463; J2590; J3010; J3475; J7120; U0003